=== PATIENT | male | born 1980 | race Caucasian/White ===

== ENCOUNTER 2016-08-18 10:43 | Inpatient (IN) ==
[2016-08-18] MEDS ORDERED: cloNIDine 0.1 MG TABLET PO STA (11:09)
[2016-08-18] MEDS ORDERED: amLODIPine 5 MG TABLET PO STA (11:09)
[2016-08-18] MEDS ORDERED: amLODIPine 5 MG TABLET ONE (11:12)
[2016-08-18] MEDS ORDERED: cloNIDine 0.1 MG TABLET ONE (11:12)
--- NOTE | 2016-08-18 11:41 | CT Report ---
CT head/brain wo con Indication: Headache. CT BRAIN WITHOUT CONTRAST DLP: 1012 mGy*cm Comparison: None. Date of admission: 08/18/2016. Technique: Axial noncontrast CT images of the brain were obtained. Findings: No acute hemorrhage, mass or mass effect. Ventricles and sulci are appropriate for age. Pichardo-white junction is maintained throughout. No focal bone lesions are shown. Visualized paranasal sinuses are clear. Impression: Negative CT brain without contrast. PROCEDURE INTERPRETED AT [facility] DEPARTMENT OF RADIOLOGY Final Report Signed by: Mayank Marin M.D.
[2016-08-18 11:49] LABS: Calcium 9.7 MG/DL (8.5-10.1); Osmolality,Calculated 279.3 MOS/KG (273-304)
[2016-08-18] MEDS ORDERED: niCARdipine 25 MG/10 ML VIAL IV ONE (12:02)
--- NOTE | 2016-08-18 12:05 | Emergency Department Note ---
IOly Gwan, am scribing for, and in the presence of, Lalo Gomez MD 11:12. Patricia Etienne Phillip K, MD, personally performed the services described in this documentation, ascribed by Reta Aldridge in my presence, and it is both accurate and complete . Arrival - Arrival Chief Complaint: Headache Stated Complaint: BP and migraines ED Nursing Triage Note: migraine type h/a everyday for the past month. reports thinks bp is high too. has been off of bp meds for about two months Mode of Arrival: Ambulatory Limitations: No Limitations Source: Patient, Significant other, Family, Old Records Reviewed, RN Notes Reviewed Time Seen by Provider: 08/18/16 11:02 - History of Present Illness HPI Narrative: Pt is a 36 y/o male, with a hx of HTN, who presents to the ED with a c/o severe SHORT with an onset of 1 month. At time of triage, pt's BP was 241/164. Patient stated that he was dx with HTN and has been on medication but due to him been away for work, he has not been complaint. He confirmed that his pain is located on bilateral temples of his head and that he has had dizziness. He denies having a PCP, ETOH use, taking anything OTC to help relieve his pain, any N/V or any blurred vision. No other problems/complaints reported in ED. Onset (ago): month(s) Consistency: constant Severity: moderate Allergies/Adverse Reactions: Allergies Allergy/AdvReac Type Severity Reaction Status Date / Time No Known Allergies Allergy Unverified 08/18/16 10:51 Home Medications: Home Medications Medication Instructions Recorded Confirmed Type Amlodipine Besylate 5 mg PO DAILY 08/18/16 08/18/16 History cloNIDine TAB [Catapres Tab] 0.3 mg PO BID 08/18/16 08/18/16 History Review of System - Review of System 12 point system: reviewed and no additional remarkable complaints except as stated - Review of System Neurological: Present: as per HPI, headache Medical,Surgical,& Family Hx - Medical History Cardio: History of: Hypertension Musculoskeletal: History of: Back/Neck Problems (herniated disc) - Social History Smoking Status: Current every day smoker Exam Vital Signs: Vital Signs Temperature 97.0 F L 08/18/16 10:55 Pulse Rate 92 H 08/18/16 11:30 Respiratory Rate 18 08/18/16 11:30 Blood Pressure 207/138 08/18/16 11:30 O2 Sat by Pulse Oximetry 97 08/18/16 11:30 - General General appearance: alert, in no apparent distress - Head Head exam: Present: atraumatic, normocephalic - Eye Eye exam: Present: normal appearance, PERRL, EOMI - ENT ENT exam: Present: normal oropharynx, mucous membranes moist, TM's normal bilaterally, normal external ear exam - Neck Neck exam: Present: full ROM, trachea midline. Absent: tenderness - Chest Chest inspection: Present: symmetric chest wall rise. Absent: tenderness - Respiratory Respiratory exam: Present: normal lung sounds bilaterally. Absent: respiratory distress - Cardiovascular Cardiovascular exam: Present: regular rate, normal rhythm. Absent: murmur, rubs - Abdominal Exam Abdominal exam: Present: soft, normal bowel sounds. Absent: distention, tenderness - Extremities Exam Extremities exam: Present: full ROM. Absent: tenderness, pedal edema, calf tenderness - Back Exam Back exam: Present: full ROM. Absent: tenderness - Neurological Exam Neurological exam: Present: alert, oriented X3, CN II-XII intact. Absent: motor sensory deficit - Psychiatric Psychiatric exam: Present: normal affect, normal mood - Skin Skin exam: Present: warm, dry, intact, normal color Course Course Narrative: Patient was given Norvasc 10 mg and clonidine 0.2 mg without any improvement in his blood pressure. His blood pressure remains 240/146. We will begin him on a Cardene infusion and admit him for blood pressure control. Patient's CAT scan was unremarkable. His electrolytes are also unremarkable. Results - Labs CBC & BMP: 08/18/16 11:01 Lab Results: I have reviewed the patients labs - Diagnostic Findings Procedure: CT: report reviewed by me (CT head shows nothing acute.) Disposition Clinical Impression: Headache, Hypertensive urgency Case discussed with: patient Disposition: Disch To Home/Self Care Condition: Guarded Additional Instructions: Admit to the hospitalist.
[2016-08-18] MEDS: niCARdipine INJ 25 MG in SODIUM CHLORIDE 0.9% 240 ML IV SCH ×3 (12:10→22:50)
[2016-08-18] MEDS ORDERED: ENOXAPARIN 40 MG/0.4 ML SYRINGE SUBCUT SCH (13:32)
[2016-08-18] MEDS ORDERED: DOCUSATE SODIUM 100 MG CAPSULE PO PRN (13:32)
--- NOTE | 2016-08-18 13:35 | Hospitalist History & Physical ---
<Rainer Almonte - Last Filed: 08/18/16 14:28> Assessment and Plan (1) Hypertensive urgency Status: Acute Assessment and plan: Pt. to ICU. Cardiac monitoring. Continue Cardene. Monitor blood pressure. Drug tox screen to r/o other etiology. Neuro checks. Echo. Continue to monitor. Current Visit: Yes (2) Headache Status: Acute Assessment and plan: Believed to be secondary to htn. Monitor as htn is being treated. Head CT performed in ER and is negative. Current Visit: Yes History of Present Illness Chief complaint: headache/high blood pressure History of present illness: Mr. Mcknight is a 36-year-old white male patient that presents to the ED today with complaints of a headache in hypertensive crisis. The patient states that each morning when he wakes up he has a "very bad" headache in the voodoo area. It is described as both a sharp and dull pain. This has been going for "a while " with pt unable to give specific time period. Today he decided to be evaluated because he felt "really bad". The patient has a history of hypertension and obstructive sleep apnea. Reports stopping breathing during the night on multiple occasions. He had been prescribed a cpap machine but denies use of it since "2003 or 2004". Pt. is also noncompliant with bp meds stating he has not used medicines since he moved to [place] 2 months ago. Pt denies any chest pain but states he is often short of breath, even at rest. Pt. denies fever, chills, abdominal pain or n/v/d. Pt also denies any tingling, numbness or weakness in extremities or vision changes. Pt's sister is at the bedside and also reports pt being dizzy at times. Pt confirms this and states it is ongoing. No other history of present illness noted. The patient will be admitted to the ICU for further evaluation and monitoring. Home Medications Medication Instructions Recorded Confirmed Type Amlodipine Besylate 5 mg PO DAILY 08/18/16 08/18/16 History cloNIDine TAB [Catapres Tab] 0.3 mg PO BID 08/18/16 08/18/16 History Allergies Allergy/AdvReac Type Severity Reaction Status Date / Time No Known Allergies Allergy Unverified 08/18/16 10:51 Medical,Surgical,& Family Hx - Medical History Cardio: History of: Hypertension Respiratory: History of: Obstructive Sleep Apnea Musculoskeletal: History of: Back/Neck Problems (herniated disc) - Social History Smoking Status: Current every day smoker Lives With:: Sibling Functional capacity: independent ambulation - Constitutional Constitutional: Present: headache(s), stops breathing during sleep. Absent: chills, fever(s) - EENT Eyes: Absent: loss of vision Ears: Absent: decreased hearing Nose, mouth and throat: Present: headache(s) - Cardiovascular Cardiovascular: Present: dyspnea. Absent: chest pain at rest, radiating jaw, neck or arm pain - Respiratory Respiratory: Present: dyspnea, snoring - Gastrointestinal Gastrointestinal: Absent: abdominal pain, diarrhea - Genitourinary Genitourinary: Present: nocturia, urinary frequency. Absent: difficulty urinating - Musculoskeletal Musculoskeletal: Absent: limited range of motion - Neurological Neurological: Present: dizziness, headache(s). Absent: frequent falls, numbness - Psychiatric Psychiatric: Absent: anxiety Exam - Constitutional Vitals: Period Temp Pulse Resp BP Sys/Redd Pulse Ox Last 24 Hr 97.0 F-99.0 F 92-103 18-20 174-241/114-164 94-100 General appearance: no acute distress, over weight - Head Head exam: Present: normal inspection, normocephalic - Eye Eye exam: Present: EOMI Pupils: Present: HECTOR - Neck Neck exam: Present: normal inspection - Respiratory Respiratory exam: Present: clear to auscultation bilaterally - Cardiovascular Cardiovascular exam: Present: tachycardia. Absent: carotid bruit - GI/Abdominal GI/Abdominal exam: Present: normal bowel sounds, soft. Absent: tenderness - Extremities Exam Extremities exam: Present: normal inspection, normal capillary refill, full ROM , edema (ankle edema) - Neurological Exam Neurological exam: Present: alert, oriented X3, normal gait - Psychiatric Psychiatric exam: Present: normal affect, normal mood - Skin Skin exam: Present: normal color, warm, dry Results - Labs CBC & BMP: 08/18/16 14:18 08/18/16 11:01 Lab Results: I have reviewed the past 24 hour labs - Diagnostic Findings Procedure: CT: report reviewed by me (negative) <Tanner Bryant - Last Filed: 08/18/16 16:01> Assessment and Plan (1) Hypertension Status: Acute Current Visit: Yes (2) Headache Status: Acute Current Visit: Yes (3) Hypertensive urgency Status: Acute Current Visit: Yes History of Present Illness History of present illness: Patient seen and examined with ECONOMICS LECTURER Almonte. Agree with history, assessment and plan as documented. Patient admitted with hypertensive urgency secondary to non-compliance with blood pressure medications. Will continue cardene drip. Continue amlodipine. - Psychiatric Psychiatric: Absent: depression - Endocrine Endocrine: Absent: cold intolerance, heat intolerance - Hematologic/Lymphatic Hematologic/Lymphatic: Absent: easy bleeding, easy bruising Exam - Constitutional Vitals: Period Temp Pulse Resp BP Sys/Redd Pulse Ox Last 24 Hr 98.5 F 93-100 14-22 159-195/78-119 95-97 - ENT ENT exam: Present: normal exam, normal oropharynx Results - Labs CBC & BMP: 08/18/16 14:18 08/18/16 11:01
[2016-08-18 14:24] LABS: Basophils # 0.1 10*3/uL (0.0-0.2); Basophils % 0.7 % (0.0-0.8); Eosinophils # 0.1 10*3/uL (0.0-0.87); Hematocrit 49.8 VOL% (42.0-52.0); Hemoglobin 16.9 GM/DL (14.0-18.0); Immature Granulocytes % 0.3 %; Immature Granulocytes Absolute 0.03 #; Lymphocytes # 2.8 10*3/uL (1.4-4.0); Lymphocytes % 25.4 % (21.2-54.2); Mean Corpuscular HGB Conc 33.9 GM/DL (32-36); Mean Corpuscular Hemoglobin 29 PG (27-34); Mean Corpuscular Volume 85.9 FL (87-102); Mean Platelet Volume 10.2 FL (9.6-12.0); Monocytes # 1.1 10*3/uL (0.11-0.8); Monocytes % 9.7 % (1.7-12.7); Neutrophils # 6.9 10*3/uL (1.4-7.4); Neutrophils % 62.9 % (38.7-73.9); Platelet Count 298 T/CUMM (130-400); Red Cell Distribution Width 12.8 % (9.3-17.3)
--- NOTE | 2016-08-18 14:49 | EKG Report ---
Stationary ECG Study [facility] Test Date: 08/18/2016 2:47:39 PM Pat Name: YONIS CASTRO Department: Room: 123 Gender: M [employer] Buster: ILIANA : 1980 Requested by: Rainer Almonte Order Number: [id number] Reading MD: NAE GODWIN Intervals [place] Rate: 96 P: 6 GA: 141 QRS: 82 QRSD: 98 T: -32 QT: 354 QTc: 407 Interpretive Statements SINUS RHYTHM ST DEVIATION AND MODERATE T-WAVE ABNORMALITY, CONSIDER LATERAL ISCHEMIA ST DEVIATION AND MODERATE T-WAVE ABNORMALITY, CONSIDER INFERIOR ISCHEMIA Electronically Signed On 08-19-16 12:20:33 CDT by NAE GODWIN [email or web address]
[2016-08-18 15:13] LABS: Free T4 (Free Thyroxine) 0.95 NG/DL (0.76-1.46); Thyroid Stimulating Hormone 0.957 uIU/ml (0.358-3.74)
--- NOTE | 2016-08-18 16:28 | Sleep Medicine Consult ---
Assessment and Plan (1) Obstructive sleep apnea Status: Acute Assessment and plan: This patient has a history of obstructive sleep apnea and I do suspect that it is severe and contributing to his uncontrolled hypertension. I stressed the importance of compliance with therapy and management of his obstructive sleep apnea to minimize his risk for significant, severe health complications of stroke or heart attack. We will be unable to locate his prior reports to base CPAP therapy upon. We cannot do HST evaluation on him tonight due to lack of device availability. I will go ahead and place him on AutoPap therapy tonight starting at 5-20 cm with mask fit. Hopefully we will be able to accomplish HST tomorrow night. He will likely have to procure his own machine with [employer] given that he does not have insurance. This equipment can be expensive and he may be able to find our bargain with a local [employer] company on a used machine. Supplies will be necessary for follow-up and he will need to take care of his machine. I have strongly recommended that he purchase insurance and it may be worthwhile for the social work specialist to assist in this. Current Visit: Yes (2) Hypertensive urgency Status: Acute Assessment and plan: The prevalence rate for obstructive sleep apnea patients with hypertension is 35 %. That rate can be as high as 80% in patients who require 4 or more medications for blood pressure control. Current Visit: Yes History of Present Illness Chief complaint: Obstructive sleep apnea History of present illness: Mr. Mcknight is a 36 year old male admitted with a difficult to control hypertension and severe headache. He has been admitted to the CCU and is on IV antihypertensive therapy. He has a history of sleep apnea originally diagnosed in [place] about 8 years ago. He cannot remember the center name but was diagnosed in [place]. He was on CPAP therapy and did well with that. He thought his sleep apnea was severe. He lost his CPAP machine when he moved back to [place]. He apparently had a falling out with his and the machine was lost in all of that. He continues to have symptoms of loud snoring and abnormal breathing during sleep with witnessed apneas. He has difficulty maintaining sleep and has significant issues with daytime sleepiness, having an Epes sleepiness score of 21. He has gained weight since his original diagnosis. Other than his history of hypertension, he has no other significant health issues. 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 Home Medications Medication Instructions Recorded Confirmed Type Amlodipine Besylate 5 mg PO DAILY 08/18/16 08/18/16 History cloNIDine TAB [Catapres Tab] 0.3 mg PO BID 08/18/16 08/18/16 History Allergies Allergy/AdvReac Type Severity Reaction Status Date / Time No Known Allergies Allergy Unverified 08/18/16 10:51 Review of systems: Otherwise unremarkable other than as noted above. Exam (Pulmonay) H&P - Constitutional Vitals: Period Temp Pulse Resp BP Sys/Redd Pulse Ox Last 24 Hr 98.5 F-98.5 F 93-100 14- 159-208/78-132 93-97 Exam: He is alert and responsive in no acute distress. Pupils equal round reactive to light and accommodation. Extraocular movements intact. Oropharynx with a class IV Mallampati exam. Neck supple without adenopathy or thyromegaly. No supraclavicular adenopathy is noted. Chest with symmetrical breath sounds without focal wheeze, rhonchi, or rales. Cardiac exam reveals a regular rhythm without murmur or gallop. Abdomen soft nontender without palpable hepatosplenomegaly or mass. Extremities are without clubbing, cyanosis, or edema. Neurologically, he is grossly intact. He moves all extremities with good strength. Medical,Surgical,& Family Hx - Medical History Cardio: History of: Hypertension Respiratory: History of: Obstructive Sleep Apnea Musculoskeletal: History of: Back/Neck Problems (herniated disc) - Surgical History Orthopedic Surgeries: Surgical HX of;: Orthopedic Surgery (knee scope) - Family History Family History: Reports;: Family Hypertension (Pt's father & grandfather), Additional Family History (Alzheimers - paternal grandfather and grandmother) - Social History Smoking Status: Current every day smoker Frequency of Alcohol Use: None Results - Labs CBC & BMP: 08/18/16 14:18 08/18/16 11:01 Lab Results: I have reviewed the past 24 hour labs
--- NOTE | 2016-08-18 19:01 | ECHO Report ---
Sonu Mcknight Exam Date: 08/18/2016 14:50 Referring Physician: Technologist: Mercy Hathaway RDCS Age: 36 Ht (in): 69 Wt (lb): 263 Gender: M Exam Location: [facility] Echo Indications: HTN urgency, Headache, ARTEMIO, Dizziness and giddiness, Essential (primary) hypertension, Dyspnea, unspecified, Nicotine dependence, cigarettes, uncomplicated BP: 174 / 119 HR: 95 Rhythm: Sinus Technical Quality: Fair IMPRESSIONS Normal LV systolic and diastolic function, ejection fraction 55%. Moderate concentric left ventricular hypertrophy. Mildly dilated right ventricle. Trace mitral and tricuspid regurgitation. MEASUREMENTS (Male / Female) Normal Values 2D ECHO LV Diastolic Diameter PLAX 4.3 cm 4.2 - 5.9 / 3.9 - 5.3 cm LV Systolic Diameter PLAX 3.0 cm LV Fractional Shortening PLAX 28.6 % IVS Diastolic Thickness 1.5 cm 0.6 - 1.0 / 0.6 - 0.9 cm LVPW Diastolic Thickness 1.8 cm 0.6 - 1.0 / 0.6 - 0.9 cm RV Internal Dim ED PLAX 3.5 cm Aortic Root Diameter 3.7 cm LA Systolic Diameter LX 3.6 cm 3.0 - 4.0 / 2.7 - 3.8 cm DOPPLER TR Peak Velocity 244.0 cm/s TR Peak Gradient 23.8 mmHg FINDINGS Left Ventricle Normal left ventricular cavity size. Moderate left ventricular hypertrophy. Left ventricular ejection fraction is estimated at 55 %. Right Ventricle Mildly dilated. Right Atrium The right atrium is normal in size. Left Atrium The left atrium is normal in size. Mitral Valve Mitral valve sclerosis. Trace mitral valve regurgitation. Aortic Valve Morphologically normal aortic valve without significant sclerosis or stenosis. There is no aortic regurgitation. Tricuspid Valve Morphologically normal tricuspid valve. Trace tricuspid valve regurgitation. Tricuspid regurgitation velocities suggest a PAP of 34 mmHg. Pulmonic Valve Morphologically normal pulmonic valve without significant stenosis. There is no pulmonic regurgitation. Pericardium Normal pericardium without effusion. Aorta Normal ascending aorta dimension. Susan Poole MD (Electronically Signed) Final Date: 18 August 2016 18:59
[2016-08-18] MEDS ORDERED: ZALEPLON 5 MG CAPSULE PO PRN (21:26)
[2016-08-18] MEDS: ACETAMINOPHEN 325 MG TABLET PO PRN (21:36)
[2016-08-18 22:08] LABS: Apearance,Urine CLEAR (Clear); Bilirubin,Urine Negative (Negative); Blood, Urine Negative (Negative); Glucose,Urine (UA) Negative (Negative); Ketones,Urine Negative (Negative); Nitrite,Urine Negative (Negative); Protein,Urine Negative; RBC,Urine <1 /HPF (0-4); Urine Color Yellow (Yellow); Urine Specific Gravity 1.015 (1.001-1.035); Urine Urobilinogen < 2.0 EU/DL (0.2-1.0); WBC,Urine <1 /HPF (0-6)
[2016-08-19 03:14] LABS: Basophils # 0.1 10*3/uL (0.0-0.2); Basophils % 0.8 % (0.0-0.8); Eosinophils # 0.2 10*3/uL (0.0-0.87); Eosinophils % 1.3 % (0.00-10.9); Hematocrit 48.8 VOL% (42.0-52.0); Hemoglobin 16.5 GM/DL (14.0-18.0); Immature Granulocytes % 0.4 %; Immature Granulocytes Absolute 0.05 #; Lymphocytes % 25.4 % (21.2-54.2); Mean Corpuscular HGB Conc 33.8 GM/DL (32-36); Mean Corpuscular Hemoglobin 28 PG (27-34); Mean Platelet Volume 10.5 FL (9.6-12.0); Monocytes % 8.7 % (1.7-12.7); Neutrophils # 7.6 10*3/uL (1.4-7.4); Neutrophils % 63.4 % (38.7-73.9); Platelet Count 328 T/CUMM (130-400); Red Blood Count 5.81 MC/CUMM (3.8-5.5); Red Cell Distribution Width 12.7 % (9.3-17.3); White Blood Count 11.9 T/CUMM (4-12)
[2016-08-19] MEDS: niCARdipine INJ 25 MG in SODIUM CHLORIDE 0.9% 240 ML IV SCH (03:39)
[2016-08-19 03:49] LABS: Osmolality,Calculated 278.4 MOS/KG (273-304); Potassium 3.9 MMOL/L (3.5-5.1); Risk Ratio 5.05; VLDL CHOLESTEROL 48.8 MG/DL
[2016-08-19] MEDS: ACETAMINOPHEN 325 MG TABLET PO PRN (06:12)
[2016-08-19 08:59] VITALS: BP 158/87
[2016-08-19] MEDS ORDERED: PANTOPRAZOLE 40 MG TABLET PO SCH (09:00)
[2016-08-19] MEDS ORDERED: amLODIPine 10 MG TABLET PO SCH (09:00)
--- NOTE | 2016-08-19 12:24 | Hospitalist Progress Note ---
Assessment and Plan (1) Hypertension Status: Acute (2) Headache Status: Acute (3) Hypertensive urgency Status: Acute Assessment and plan: Still on cardene infusion. Continue amlodipine Hospitalist: Subjective Interval history: Patient seen this am. Blood pressure much improved today, still on cardene infusion. Patient reports that he is going home today, he has to go to work and he can't afford to be in the hospital. I discussed with him that he was still requiring the cardene infusion. He stated that his po medications would work better. I wrote prescriptions for amlodipine and lisinopril just in case he left ama. Patient left ama soon after this. Exam - Constitutional Vitals: Period Temp Pulse Resp BP Sys/Redd Pulse Ox Last 24 Hr 97.0 F-98.5 F 73-110 12-33 118-208/69-132 91-97 General appearance: over weight - Head Head exam: Present: normocephalic, atraumatic - Eye Eye exam: Present: EOMI Pupils: Present: HECTOR - ENT ENT exam: Present: normal exam - Neck Neck exam: Present: normal inspection - Respiratory Respiratory exam: Present: clear to auscultation bilaterally. Absent: rhonchi, wheezes - Cardiovascular Cardiovascular exam: Present: regular rate and rhythm - GI/Abdominal GI/Abdominal exam: Present: normal bowel sounds, soft. Absent: tenderness, rebound - Extremities Exam Extremities exam: Present: normal inspection - Back Exam Back exam: Present: normal inspection - Neurological Exam Neurological exam: Present: alert, oriented X3 - Psychiatric Psychiatric exam: Present: normal affect, normal mood - Skin Skin exam: Present: warm, intact Results - Labs CBC & BMP: 08/19/16 02:47 08/19/16 02:47
== END 2016-08-19 08:57 | disposition left against medical advice (07) | DRG 305 ==
LOC: N.ED 10:43 → N.EDINP 13:01 → N.CC 13:13
PROVIDERS: ADMIT Internal Medicine; ATTEND Internal Medicine

== ENCOUNTER 2020-05-14 18:47 | Inpatient (IN) ==
[2020-05-14] MEDS ORDERED: ALBUTEROL/IPRATROPIUM 3 ML NEB RESP TX STA (19:40)
[2020-05-14] MEDS ORDERED: methylPREDNISolone SOD SUC 125 MG/2 ML VIAL IV STA (19:40)
[2020-05-14] MEDS ORDERED: ONDANSETRON 4 MG/2 ML VIAL IV STA (19:40)
[2020-05-14] MEDS ORDERED: FUROSEMIDE 100 MG/10 ML VIAL IV STA (19:40)
[2020-05-14] MEDS ORDERED: NITROGLYCERIN 2% OINT 1 INCH/GM PACK TOP STA (19:40)
[2020-05-14] MEDS ORDERED: MORPHINE 4 MG/1 ML VIAL IV STA (19:40)
[2020-05-14] MEDS ORDERED: hydrALAZINE 20 MG/1 ML VIAL IV STA (19:49)
[2020-05-14 21:01] LABS: Basophils # 0.1 10*3/uL (0.0-0.2); Basophils % 0.8 % (0.0-0.8); Eosinophils # 0.2 10*3/uL (0.0-0.87); Eosinophils % 1.8 % (0.00-10.9); Hematocrit 45.9 VOL% (42.0-52.0); Hemoglobin 15.5 GM/DL (14.0-18.0); Immature Granulocytes % 0.4 %; Immature Granulocytes Absolute 0.05 #; Lymphocytes # 2.9 10*3/uL (1.4-4.0); Lymphocytes % 22.6 % (21.2-54.2); Mean Corpuscular HGB Conc 33.8 GM/DL (32-36); Mean Corpuscular Volume 81.2 FL (87-102); Monocytes % 9.4 % (1.7-12.7); Platelet Count 347 T/CUMM (130-400); Red Blood Count 5.65 MC/CUMM (3.8-5.5); Red Cell Distribution Width 14.9 % (9.3-17.3); White Blood Count 12.9 T/CUMM (4-12)
[2020-05-14 21:10] LABS: PT Patient Result 10.9 SECS (9.8-11.9)
[2020-05-14 21:22] LABS: Albumin 3.7 G/DL (3.4-5.0); Bilirubin,Total 0.4 MG/DL (0.2-1.0); Calcium 9.9 MG/DL (8.5-10.1); Osmolality,Calculated 283.3 MOS/KG (273-304); Total Protein 7.7 G/DL (6.4-8.3)
[2020-05-14 21:40] LABS: Barbiturates Screen,Urine Negative (Negative); Benzodiazepines Screen,Urine Negative (Negative); Bilirubin,Urine Negative (Negative); Blood, Urine Negative (Negative); Cannabinoid Screen,Urine Negative (Negative); Glucose,Urine (UA) Negative (Negative); Hyaline Casts,Urine 1 /LPF (0-3); Ketones,Urine Negative (Negative); Mucus,Urine Occasional /LPF (Occasional); Nitrite,Urine Negative (Negative); Opiate Screen,Urine Negative (Negative); Phencyclidine Screen,Urine Negative (Negative); Protein,Urine 100 MG/DL; RBC,Urine 1 /HPF (0-4); Urine Appearance CLEAR (Clear); Urine Color Yellow (Yellow); Urine Specific Gravity 1.011 (1.001-1.035); Urine Urobilinogen < 2.0 EU/DL (0.2-1.0); WBC,Urine <1 /HPF (0-6)
[2020-05-14] MEDS ORDERED: LABETALOL 20 MG/4 ML SYRINGE IV STA (21:50)
[2020-05-14] MEDS ORDERED: niCARdipine INJ 25 MG in SODIUM CHLORIDE 0.9% 240 ML IV PRN (23:27)
[2020-05-14] MEDS ORDERED: niCARdipine 25 MG/10 ML VIAL IV ONE (23:32)
[2020-05-15] MEDS ORDERED: DEXTROSE 50% 25 GM/50 ML VIAL IV PRN (00:04)
[2020-05-15] MEDS ORDERED: ACETAMINOPHEN 325 MG TABLET PO PRN (00:04)
[2020-05-15] MEDS ORDERED: GLUCAGON 1 MG VIAL IM PRN (00:04)
[2020-05-15] MEDS ORDERED: ONDANSETRON 4 MG/2 ML VIAL IV PRN (00:04)
[2020-05-15] MEDS ORDERED: niCARdipine INJ 25 MG in SODIUM CHLORIDE 0.9% 240 ML IV PRN (00:30)
[2020-05-15] MEDS ORDERED: cefTRIAXone 1,000 MG in SYRINGE 1 EACH IV SCH (00:30)
[2020-05-15] MEDS ORDERED: AZITHROMYCIN INJ 500 MG in SODIUM CHLORIDE 0.9% 250 ML IV SCH (00:30)
[2020-05-15] MEDS: ALBUTEROL/IPRATROPIUM 3 ML NEB RESP TX SCH ×2 (01:50→07:15)
[2020-05-15] MEDS ORDERED: niCARdipine 25 MG/10 ML VIAL IV ONE ×2 (05:03→07:21)
[2020-05-15 05:10] LABS: Basophils # 0.1 10*3/uL (0.0-0.2); Basophils % 0.3 % (0.0-0.8); Hematocrit 47.5 VOL% (42.0-52.0); Hemoglobin 15.9 GM/DL (14.0-18.0); Immature Granulocytes % 0.5 %; Immature Granulocytes Absolute 0.08 #; Lymphocytes # 1.1 10*3/uL (1.4-4.0); Lymphocytes % 6.7 % (21.2-54.2); Mean Corpuscular HGB Conc 33.5 GM/DL (32-36); Mean Corpuscular Volume 82.3 FL (87-102); Mean Platelet Volume 10.2 FL (9.6-12.0); Monocytes % 0.5 % (1.7-12.7); Platelet Count 396 T/CUMM (130-400); Red Blood Count 5.77 MC/CUMM (3.8-5.5); Red Cell Distribution Width 14.6 % (9.3-17.3); White Blood Count 15.7 T/CUMM (4-12)
[2020-05-15 05:48] LABS: Calcium 9.5 MG/DL (8.5-10.1); Risk Ratio 4.63; Thyroid Stimulating Hormone 0.88 uIU/ml (0.358-3.74); VLDL CHOLESTEROL 9.6 MG/DL
[2020-05-15 07:00] LABS: Band Neutrophils 6 % (0-10); Lymphocytes 8 % (20-55); Platelet Estimate Normal; Segmented Neutrophils 86 % (50-85); Total Cells Counted 100
[2020-05-15 07:02] LABS: Anisocytosis 1+
[2020-05-15] MEDS ORDERED: cloNIDine 0.1 MG TABLET PO PRN (08:42)
[2020-05-15] MEDS ORDERED: FUROSEMIDE 40 MG/4 ML VIAL ONE (08:46)
[2020-05-15] MEDS ORDERED: guaiFENesin/DM ER 600-30 MG TABLET PO SCH (09:00)
[2020-05-15] MEDS ORDERED: ENOXAPARIN 40 MG/0.4 ML SYRINGE SUBCUT SCH (09:00)
[2020-05-15] MEDS ORDERED: hydroCHLOROthiazide 25 MG TABLET PO SCH (09:00)
[2020-05-15] MEDS ORDERED: AZITHROMYCIN 250 MG TABLET PO SCH (09:00)
[2020-05-15] MEDS ORDERED: FUROSEMIDE 20 MG/2 ML VIAL IV SCH (09:00)
[2020-05-15] MEDS ORDERED: carvediloL 12.5 MG TABLET PO SCH (09:00)
[2020-05-15] MEDS ORDERED: amLODIPine 10 MG TABLET PO SCH (09:00)
[2020-05-15] MEDS ORDERED: NICOTINE 21 MG/24 HR PATCH TRANSDERM SCH (09:00)
[2020-05-15] MEDS ORDERED: PANTOPRAZOLE 40 MG TABLET PO SCH (09:00)
[2020-05-15] MEDS ORDERED: ASPIRIN EC 81 MG TABLET PO SCH (11:30)
[2020-05-15 12:00] VITALS: BP 148/70
[2020-05-15] MEDS ORDERED: hydrALAZINE 25 MG TABLET PO SCH (15:00)
[2020-05-16] MEDS ORDERED: FUROSEMIDE 20 MG/2 ML VIAL IV SCH (09:00)
[2020-05-16] MEDS ORDERED: ISOSORBIDE DINITRATE 10 MG TABLET PO SCH (09:00)
== END 2020-05-15 12:08 | disposition home or self-care (01) | DRG 291 ==
LOC: N.ED 18:47 → N.EDINP 05-15 00:04
PROVIDERS: ADMIT Internal Medicine; ATTEND Internal Medicine